=== PATIENT | female | born 1955 | race Caucasian/White ===

== ENCOUNTER 2023-07-19 11:13 | Day surgery (SDC) | payer BC, MEDICAID ==
[~2023-07-19] VITALS: Ht 162.6 cm; Wt 73.5 kg
[~2023-07-19 11:13] MED LIST: IOHEXOL 300 mgI/mL, 50 mL INFUS..BTL IV ONE; LIDOCAINE 2%, 20 ML MDV ONE; NORMAL SALINE 10 ML VIAL ONE; methylPREDNISolone ACETATE 40 MG/ML ONE
[2023-07-19] MEDS ORDERED: fentaNYL CITRATE/PF 100 MCG/2 ML AMP ONE (12:54)
[2023-07-19 13:28] VITALS: O2SAT 98
[2023-07-19] MEDS: DIPHENHYDRAMINE INJ 50 MG/ML VIAL ONE (14:24)
[2023-07-19] MEDS: MIDAZOLAM HCL 5 MG/5 ML VIAL ONE (14:25)
[2023-07-19 15:51] VITALS: BP_SYST 120; PULSE 60; RESP 20
== END 2023-07-19 15:51 | disposition home or self-care (01) ==
LOC: SDS 11:13 → SMU 11:16 → SDS 15:51
PROVIDERS: ATTEND Internal Medicine
DX: M53.3 Sacrococcygeal disorders, not elsewhere classified (principal); G89.29 Other chronic pain; I10 Essential (primary) hypertension; Z90.710 Acquired absence of both cervix and uterus; Z98.890 Other specified postprocedural states; Z79.899 Other long term (current) drug therapy; Z85.038 Personal history of other malignant neoplasm of large intestine
CPT/HCPCS: 64999; J1200; J1030; J2250; Q9967; 76000; J2001; J3010